=== PATIENT | female | born 2005 | race Caucasian/White ===

== ENCOUNTER 2024-02-04 12:36 | Emergency (ER) | payer OTHER, SELFPAY ==
[2024-02-04 12:50] VITALS: TEMP 36.4
[2024-02-04 12:57] VITALS: BP 123/71; PULSE 62; RESP 16; O2SAT 100
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
--- NOTE | 2024-02-04 14:55 | PC.NURSE ---
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
[2024-02-04 14:56] VITALS: BP 117/81; PULSE 60; RESP 16; TEMP 36.5; O2SAT 99
== END 2024-02-04 14:58 | disposition home or self-care (01) ==
PROVIDERS: Emergency Provider Emergency Medicine
DX: S05.91XA Unspecified injury of right eye and orbit, initial encounter (principal); Y04.0XXA Assault by unarmed brawl or fight, initial encounter
CPT/HCPCS: 99283